=== PATIENT | male | born 1980 | race American Indian/Alaskan Native ===

== ENCOUNTER 2020-12-07 05:34 | Emergency (ER) | payer SELFPAY ==
[2020-12-07 05:49] VITALS: BP 146/98
[2020-12-07 07:02] LABS: Basophils % (Auto) 0.4 % (0.0-1.8); Eosinophils # (Auto) 0.3 K/mm3 (0.0-0.4); Eosinophils % (Auto) 3.1 % (0.0-4.3); Hematocrit 41.6 % (35.5-45.6); Hemoglobin 14.3 gm/dl (11.8-15.2); Lymphocytes # (Auto) 1.9 K/mm3 (1.2-5.4); Lymphocytes % (Auto) 21.2 % (13.4-35.0); Mean Corpuscular HGB Conc 34 % (32-34); Mean Corpuscular Volume 87 fl (84-94); Monocytes # (Auto) 1.1 K/mm3 (0.0-0.8); Monocytes % (Auto) 12.1 % (0.0-7.3); Platelet Count 248 K/mm3 (140-440); Red Blood Count 4.81 M/mm3 (3.65-5.03); Red Cell Distribution Width 15.8 % (13.2-15.2)
[2020-12-07 07:10] LABS: BUN/Creatinine Ratio 16; Blood Urea Nitrogen 13 mg/dL (9-20); Calcium 9.5 mg/dL (8.4-10.2); Hemolysis Index 1
--- NOTE | 2020-12-09 08:53 | Electrocardiograph Report ---
[facility] Test Date: 2020-12-07 Test Time: 06:10:59 Pat Name: JORDY SOMMERS Department: Room: Gender: M Classified Ad Clerk: LALITA : 1980 Requested By: ZION MORRISON Order Number: [id number] Reading MD: Devon Tobar Measurements Intervals [place] Rate: 86 P: 50 NV: 161 QRS: 61 QRSD: 96 T: 34 QT: 352 QTc: 421 Interpretive Statements Sinus rhythm apc ST elev, probable normal early repol pattern No previous ECG available for comparison Electronically Signed On 12-09-2020 8:52:58 EDT by Devon Tobar
== END 2020-12-07 16:02 | disposition left against medical advice (07) ==
LOC: ED 05:34
DX: R07.9 Chest pain, unspecified (principal); Z53.21 Procedure and treatment not carried out due to patient leaving prior to being seen by health care provider
CPT/HCPCS: 36415; 80048; 85025; 85379; 93005